=== PATIENT | male | born 1945 | race Caucasian/White ===

== ENCOUNTER → 2020-12-19 13:33 | Outpatient (CLI) | payer OTHER, SELFPAY ==
--- NOTE | 2020-12-19 | CA_ITS ---
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00 cm/s E/LAT E' Ratio 16.19 (>14) Pulm Vein s 52.00 cm/sec Pulm Vein d 28.00 cm/sec Ar-A Duration 130.00 msec Aortic Valve LVOT Max 127.00 (70-110 cm/s) LVOT VTI 25.11 cm AoV Peak Lenard. 214.00 (50-130 cm/s) AO Peak GR. 18.30 mmHg AO Mean GR. 9.50 (<5 mmHg) AO VTI 42.35 (18-25 cm) JAIRON (VTI) 1.66 (2.5-4.5 cm2) Mitral Valve MV A Velocity 79.00 (40-130 cm/s) E/A Ratio 0.99 MV Decel. Time 220.00 (160-240 ms) Pulmonary Valve PV Peak Velocity 101.00 (50-150 cm/s) Tricuspid Valve TR P. Velocity 192.00 cm/s RAP Estimate 10.00 mmHg RVSP 24.70 mmHg Left Ventricle Left atrium is mildly enlarged, left ventricle is normal size, mild concentric left ventricular hypertrophy, visually estimated ejection fraction 55% with no regional wall motion abnormality, grade 1 diastolic dysfunction seen with tissue Doppler evidence of raise left atrial pressure. Right Ventricle Right atrium and right ventricle are normal size and contractility. Aortic Valve Aortic valve is thickened and calcified, mean gradient across valve is 10 mmHg, valve area is 1.7 cm??? represents mild aortic stenosis, there is no aortic insufficiency. Mitral Valve Mitral valve is grossly normal, there is trace mitral regurgitation. Tricuspid Valve Tricuspid grossly normal, there is trace tricuspid regurgitation, tricuspid regurgitation jet velocity is inadequate for calculation of the right ventricular systolic pressure. Pulmonic Valve Pulmonic valve is poorly visualized. Great Vessels Aortic root is normal size. Pericardium No significant pericardial effusion noted. Conclusion 1. Mildly enlarged left atrium, normal left ventricular size, mild concentric left ventricular hypertrophy, visually estimated ejection fraction 55% with no regional wall motion abnormality, grade 1 diastolic dysfunction seen with tissue Doppler evidence of raise left atrial pressure. 2. Thickened and calcified aortic valve with mild aortic stenosis, valve area is 1.7 cm???. 3. Trace mitral and tricuspid regurgitation. 4. No significant pericardial effusion noted. Electronically signed by : Gilmar Almanzar, 12/19/2020 18:13:39
== END ==
PROVIDERS: PCP Internal Medicine; Visit Provider Orthopaedic Surgery
DX: I48.91 Unspecified atrial fibrillation (principal)
CPT/HCPCS: 93306